=== PATIENT | female | born 2000 | race African-American/Black ===

== ENCOUNTER 2022-01-30 20:53 | Emergency (ER) | payer SELFPAY ==
[2022-01-30] MEDS ORDERED: CEFAZOLIN 1 GM VIAL ONE (20:57)
[2022-01-30] MEDS ORDERED: Fentanyl 100 MCG/2 ML VIAL ONE (20:57)
[2022-01-30] MEDS ORDERED: Boostrix 0.5 ML (Tdap) VIAL ONE (21:01)
[2022-01-30 21:21] LABS: #Basophils 0.2 thou/uL (0.0-0.2); #Eosinphils 0.1 thou/uL (0.0-0.7); #Lymphocytes 2.5 thou/uL (1.20-3.40); #Monocytes 0.6 thou/uL (0.11-0.59); #Neutrophils 4.6 thou/uL (1.40-6.50); %Basophils 2.1 % (0.0-1.0); %Lymphocytes 31.9 % (21.0-51.0); %Neutrophils 57.9 % (42.0-75.0); Hemoglobin 12.1 g/dL (12.0-16.0); Mean Corpuscular HGB CONC 30.9 g/dL (32.0-36.0); Mean Corpuscular Hemoglobin 24.5 pg (27.0-31.0); Mean Corpuscular Volume 79.3 fL (78.0-98.0); Mean Platelet Volume 7.7 fL (7.4-10.4); Platelet Count 354 thou/uL (130-400); RBC Distribution Width 11.3 % (11.5-14.5); Red Blood Cell (RBC) Count 4.95 mill/uL (4.20-5.40); White Blood Cell (WBC) Count 7.9 thou/uL (4.8-10.8)
[2022-01-30 21:29] LABS: Prothrombin Time 13.4 sec (12.0-14.7)
[2022-01-30 21:30] LABS: PTT 30.9 sec (22.9-36.1)
[2022-01-30 21:42] LABS: ALT (SGPT) 16 U/L (8-55); AST (SGOT) 25 U/L (5-34); Albumin 4.4 g/dL (3.5-5.0); Alkaline Phosphatase 60 U/L (40-110); Anion Gap 16 mmol/L (10-20); BUN (Urea Nitrogen) 9 mg/dL (7.0-18.7); Bilirubin, Total 0.2 mg/dL (0.2-1.2); Calc. Creatinine Clearance 0 mL/min (70-130); Calcium 8.9 mg/dL (7.8-10.44); Carbon Dioxide 17 mmol/L (22-29); Chloride 109 mmol/L (98-107); Globulin 2.3 g/dL (2.4-3.5); Glucose 88 mg/dL (70-105); Protein, Total 6.7 g/dL (6.0-8.3); Sodium 138 mmol/L (136-145)
== END 2022-01-30 22:47 | disposition home or self-care (01) ==
LOC: ERS 20:53
DX: S81.041A Puncture wound with foreign body, right knee, initial encounter (principal); W34.00XA Accidental discharge from unspecified firearms or gun, initial encounter; Z23 Encounter for immunization
CPT/HCPCS: 36415; 80053; 83605; 85025; 85610; 85730; 86850; 86900; 86901; 90471; 90715; 96374; 96375; G0390; J0690; J3010